=== PATIENT | male | born 1990 | race American Indian/Alaskan Native ===

== ENCOUNTER 2018-03-02 21:18 | Emergency (ER) | payer SELFPAY ==
[2018-03-02 22:04] VITALS: BP 132/90
--- NOTE | 2018-03-03 05:23 | Emergency Department Report ---
Chief Complaint: Urogenital-Female Stated Complaint: STD Time Seen by Provider: 03/03/18 05:16 - HPI History of Present Illness: 78-year-old -Citizen Of [place] male comes in wanting to have an STD checkup. Patient has no signs or symptoms of any STDs. Patient reports that his girlfriend tested positive for Trichomonas done her OB evaluation. - Exam Vital Signs: Vital Signs 03/02/18 22:00 Temperature 98.5 F Pulse Rate 82 Respiratory 18 Rate Blood Pressure 132/90 O2 Sat by Pulse 99 Oximetry MSE screening note: Focused history and physical exam performed. Due to findings the following was ordered: Patient is considered a non-emergency examination. Discussed the patient he can follow up with health department for STD testing. I have given patient a list of health department as well as [facility]. ED Disposition for MSE Condition: Stable Referrals: PRIMARY CARE, [Primary Care Provider] - 3-5 Days [facility] [Outside] - 3-5 Days [facility] Dept[facility] Adult [facility] [Outside] - 3-5 Days [facility] [Outside] - 3-5 Days [facility] [Outside] - [facility]5 Days [facility] [[facility] - 3-5 Days [facility] [Outside] - 3-5 Days
== END 2018-03-03 05:20 | disposition home or self-care (01) ==
LOC: ED 21:18
DX: Z11.3 Encounter for screening for infections with a predominantly sexual mode of transmission (principal)
CPT/HCPCS: 99282